=== PATIENT | male | born 2005 | race Caucasian/White ===

== ENCOUNTER 2023-08-08 11:55 | Emergency (ER) | payer MEDICAID, SELFPAY ==
[2023-08-08 11:56] VITALS: BP 140/90; PULSE 74; RESP 14; TEMP 36.8; O2SAT 100; BMI 34.0
[2023-08-08 15:13] LABS: AST(SGOT) 28 U/L (15-37); Alanine Aminotransfer ALT/SGPT 26 U/L (16-61); Albumin, Serum 4.4 g/dL (3.2-5.0); Alkaline Phosphatase 120 U/L (45-117); Anion Gap 6 (5-15); BUN 10 mg/dL (7-18); BUN/Creat Ratio 11.3 RATIO (10-20); Calcium,Total 9.6 mg/dL (8.5-10.1); Chloride 109 mmol/L (98-107); Creatinine, Serum 0.88 mg/dL (0.70-1.30); EST Glomerular Filtration Rate 117 mL/min (>60); Est Glom Filt Rate - Afr Amer 141 mL/min (>60); Globulin 4.2 g/dL (2.2-4.2); Glucose 85 mg/dL (74-106); Potassium 4.1 mmol/L (3.5-5.1); Protein, Total 8.6 g/dL (6.4-8.2); Sodium Level 138 mmol/L (136-145)
[2023-08-08 15:32] LABS: Absolute Lymphocyte Count 1.64 X10^3/uL (0.83-4.51); Basophil# 0.05 X10^3/uL; Basophil% 0.5 % (0-1); Eosinophil# 0.23 X10^3/uL; Eosinophils% 2.4 % (0-5); Hematocrit 48.5 % (40-54); Hemoglobin 15.7 g/dL (13.0-16.5); Lymphocyte # 1.64 X10^3/ul (0.83-4.51); Lymphocyte % 17.1 % (19-41); Mean Corp Hgb Conc 32.4 g/dL (32-36); Mean Corpuscular Hgb 27.5 pg (27.0-32.0); Mean Corpuscular Volume 85.1 fL (80-94); Mean Platelet Vol. 10.6 fl (6.2-12.0); Monocyte# 0.66 X10^3/uL; Monocyte% 6.9 % (0-10); NRBC Flagged by Analyzer 0 % (0-5); Neutrophil # 6.95 X10^3/uL (2.7-7.7); Neutrophil % 72.7 % (47-70); Platelet Count 338 K/mm3 (150-450); RBC Distribution Width SD 40.3 fl (35.1-43.9); White Blood Count 9.6 K/mm3 (4.4-11.0)
[2023-08-08 15:46] LABS: Squamous Epithelial Cells - UA 0 SEEN /hpf (0-5)
[2023-08-08 16:00] LABS: Lipase 26 U/L (13-75)
[2023-08-08 16:04] LABS: Color, Urine Yellow (Yellow); Glucose, Dipstick Normal (Normal); Ketone-Dipstick 15 mg/dl (Negative); Leukocyte Esterase-Dipstick Negative /ul (Negative); Nitrite-Dipstick Negative (Negative); Occult Blood-Urine Negative /ul (Negative); Protein-Dipstick 15 mg/dl (Negative); Urine Bilirubin Dipstick Negative (Negative); Urine Clarity Clear (Clear); Urine Urobilinogen 1 mg/dl (Normal)
--- NOTE | 2023-08-08 16:13 | ED.VIS.GI ---
HPI HPI - GI History of Present Illness Chief Complaint: Abd Pain Narrative Narrative: 17-year-old male with nausea, vomiting x 3 days. He states he is not able to hold down any food or fluid. He states has been something going around the house. He thought that he would get better but his symptoms of gotten worse. He is only able to hold onto small amount of fluids today. He states his abdomen does not hurt anymore but he does have nausea. No fevers, chills, body aches. No diarrhea. Patient denies significant medical problems. PFSH PFSH Medical History Asthma Home Medications albuterol sulfate 90 mcg/actuation aerosol inhaler (Ventolin HFA) 1 - 2 puff inhalation Q4H PRN PRN Wheezing ##1 10/17/14 [Rx Last Taken Unknown] ibuprofen 400 mg tablet 400 mg PO Q8H ##20 11/08/14 [Rx Last Taken Unknown] ondansetron 4 mg disintegrating tablet 4 mg PO Q8H PRN PRN Nausea #14 tabs 08/08/23 [Rx Last Taken Unknown] Allergy/AdvReac Type Severity Reaction Status Date / Time Food Allergies: Uncoded Allergy NEEDS Verified 08/08/23 11:56 FOLLOW-UP Surgical History no surgical history Social History Smoking Status: Never smoker ROS ROS ED Constitutional Constitutional ED: Denies chills, fever(s) or sweats Eyes Eyes: Denies blurry vision or change in vision ENT ENT ED: Denies ear pain or sore throat Cardiovascular Cardiovascular: Denies chest pain, palpitations or racing heartbeat Respiratory/Chest Respiratory/Chest: Denies cough, dyspnea or sputum Gastrointestinal Gastrointestinal: Reports abdominal pain, nausea and vomiting; Denies constipation Genitourinary Genitourinary ED: Denies dysuria, hematuria or urinary frequency Musculoskeletal Musculoskeletal: Denies arthralgias, myalgias or neck pain Integumentary Denies abscess, Abrasions or rash Neurologic Neurologic: Denies headache(s), paresthesias or weakness Psychiatric Psychiatric: Denies anxiety, depression, suicidal ideation or suicidal thoughts Endocrine Endocrinology: Denies polydipsia or polyuria EXAM Physical Exam Const Vital Signs: 08/08/23 11:56 Temperature 98.2 F Temperature Source Temporal Pulse Rate 74 Respiratory Rate 14 Blood Pressure 140/90 H Blood Pressure Mean 106 Pulse Ox 100 Oxygen Delivery Method Room Air Positive well nourished General Appearance ED: NAD; Negative for pallor HEENT Reports moist mucous membranes normocephalic Eyes PERRL and EOMs intact bilaterally Neck no lymphadenopathy Resp normal respiratory effort and clear to auscultation bilaterally Cardio regular rate and regular rhythm GI non-tender and non-distended Neuro CN's II-XII intact bilaterally and moves all extremities Sensorium / Orientation: alert Psych mental status grossly normal and thought process normal Skin no wounds General Skin Exam: Negative for jaundice or pallor MDM MDM MDM Narrative Medical decision making narrative: Patient presented with nausea, vomiting, abdominal pain which is resolved. He states he has not been able to hold down food or fluids. Differential includes COVID, influenza, dehydration, electrolyte abnormalities. Patient medicated with Zofran and CBC was obtained to assess white blood cell count, platelets, differential. CMP to assess liver function, renal function, electrolytes. Lipase assess for pancreatitis. Will reevaluate and p.o. challenge if feeling better. Patient reevaluated states he still has a mild headache. Was given Tylenol p.o. and tolerated this. Patient was counseled to drink small amounts of fluid frequently drink plenty of water. He is also to advance his diet as tolerated to maintain a bland diet. Patient was given a prescription for Zofran. He was given a work note for today and tomorrow. Return precautions were discussed. Impression: 1. Nausea/vomiting Lab Data Attestation: I reviewed the patient's lab results. Labs: Laboratory Results - last 24 hr 08/08/23 08/08/23 08/08/23 14:25 14:25 15:10 WBC Cancelled 9.6 Corrected WBC Cancelled RBC Cancelled 5.70 Hgb Cancelled 15.7 Hct Cancelled 48.5 MCV Cancelled 85.1 MCH Cancelled 27.5 MCHC Cancelled 32.4 RDW Std Deviation Cancelled 40.3 RDW Coeff of Jose Angel Cancelled 13.0 Plt Count Cancelled 338 MPV Cancelled 10.6 Immature Gran % (Auto) Cancelled 0.400 Neut % (Auto) Cancelled 72.7 H Lymph % (Auto) Cancelled 17.1 L Howell % (Auto) Cancelled 6.9 Eos % (Auto) Cancelled 2.4 Baso % (Auto) Cancelled 0.5 Absolute Neuts (auto) Cancelled 7.0 Absolute Lymphs (auto) Cancelled 1.64 Total Counted Cancelled Neutrophils % (Manual) Cancelled Band Neutrophils % Cancelled Lymphocytes % (Manual) Cancelled Monocytes % (Manual) Cancelled Eosinophils % (Manual) Cancelled Basophils % (Manual) Cancelled Metamyelocytes % Cancelled Myelocytes % Cancelled Promyelocytes % Cancelled Blast Cells % Cancelled Plasma Cell % (Manual) Cancelled Other Cells % Cancelled Nucleated RBC % Cancelled 0 Nucleated RBCs/100 WBC Cancelled Differential Comment Cancelled Diff Path Review Cancelled Hypersegmented Neuts Cancelled Atypical Lymphocytes Cancelled Reactive Lymphocytes Cancelled Smudge Cells Cancelled Toxic Granulation Cancelled Toxic Vacuolation Cancelled Dohle Bodies Cancelled Alfredo Rods Cancelled Platelet Estimate Cancelled Plt Morphology Comment Cancelled RBC Morphology Cancelled Cancelled Polychromasia Cancelled Hypochromasia Cancelled Poikilocytosis Cancelled Basophilic Stippling Cancelled Anisocytosis Cancelled Microcytosis Cancelled Macrocytosis Cancelled Spherocytes Cancelled Sickle Cells Cancelled Target Cells Cancelled Tear Drop Cells Cancelled Ovalocytes Cancelled Stomatocytes Cancelled [place] Bodies Cancelled Maryann Cells Cancelled Bite Cells Cancelled Crenated Cell Cancelled Acanthocytes (Spur) Cancelled Rouleaux Cancelled Schistocytes Cancelled Sodium 138 Potassium 4.1 Chloride 109 H Carbon Dioxide 23.0 Anion Gap 6 BUN 10 Creatinine 0.88 Estim Creat Clear Calc 143.80 Est GFR (MDRD) Af Amer 141 Est GFR (MDRD) Non-Af 117 BUN/Creatinine Ratio 11.3 Glucose 85 Calcium 9.6 Total Bilirubin 0.50 AST 28 ALT 26 Alkaline Phosphatase 120 H Total Protein 8.6 H Albumin 4.4 Globulin 4.2 Albumin/Globulin Ratio 1.0 Lipase 26 Urine Color Yellow Urine Clarity Clear Urine pH 6.0 Ur Specific [place] 1.020 Urine Protein 15 H Urine Glucose (UA) Normal Urine Ketones 15 H Urine Occult Blood Negative Urine Nitrite Negative Urine Bilirubin Negative Urine Urobilinogen 1 H Ur Leukocyte Esterase Negative Urine RBC 0-5 SEEN Urine WBC 0-5 SEEN Ur Squamous Epith Cells 0 SEEN Urine Bacteria RARE Urine Mucus 3+ Discharge Plan Triage Chief Complaint: Abd Pain ED Provider: Kirk,Mark Dx/Rx/DC Orders Instructions: ED Gastroenteritis, Viral (Adult) Prescriptions: New ondansetron 4 mg tablet,disintegrating 4 mg PO Q8H PRN PRN (Reason: Nausea) Qty: 14 0RF No Action albuterol sulfate [Ventolin HFA] 1 INHALER inhaler 1 - 2 puff inhalation Q4H PRN PRN (Reason: Wheezing) Qty: 1 0RF ibuprofen 400 MG tablet 400 mg PO Q8H Qty: 20 0RF Stand Alone Forms: ED Work / School Excuse, Work / School Excuse Primary Care Provider: Rickie Andrew Referrals: Rickie Andrew MD [Primary Care Provider] - Disposition Disposition: Home, Self Care
[2023-08-08] MEDS: Ondansetron 4 MG/2 ML Vial IV (16:17)
[2023-08-08 16:30] LABS: Bacteria RARE /hpf (None Seen); Mucous, Urine 3+ /hpf (<or=2+); Red Blood Cells-Urine 0-5 SEEN /hpf (0-5); White Blood Cells 0-5 SEEN /hpf (0-5)
[2023-08-08] MEDS: Acetaminophen 500 MG Tablet 1000 MG PO (16:48)
== END 2023-08-08 17:03 | disposition home or self-care (01) ==
PROVIDERS: Emergency Provider Student in an Organized Health Care Education/Training Program; PCP Family Medicine; Visit Provider Student in an Organized Health Care Education/Training Program
DX: R11.2 Nausea with vomiting, unspecified (principal); R10.9 Unspecified abdominal pain; J45.909 Unspecified asthma, uncomplicated; R51.9 Headache, unspecified
CPT/HCPCS: 80053; 81001; 83690; 85025; 96374; 99283; A4216; J2405

== ENCOUNTER 2025-03-08 08:01 | Emergency (ER) | payer BC, SELFPAY ==
[2025-03-08 08:03] VITALS: BP 127/79; PULSE 55; RESP 14; TEMP 36.4; O2SAT 98; BMI 30.9
[2025-03-08] MEDS: 0.9% Normal Saline (1000mL) 1,000 ML 999 ML IV (08:52)
[2025-03-08 09:30] LABS: Mucous, Urine 0 SEEN /hpf (<or=2+); Red Blood Cells-Urine 0 SEEN /hpf (0-5); Squamous Epithelial Cells - UA 0 SEEN /hpf (0-5)
[2025-03-08 09:34] LABS: Hematocrit 41.7 % (40-54); Hemoglobin 13.7 g/dL (13.0-16.5); Immature Granulocytes Count 0.030 X10^3/uL (0.0-0.0); Mean Corp Hgb Conc 32.9 g/dL (32-36); Mean Corpuscular Volume 87.2 fL (80-94); Mean Platelet Vol. 11.0 fl (6.2-12.0); NRBC Flagged by Analyzer 0 % (0-5); Platelet Count 235 K/mm3 (150-450); RBC Distribution Width CV 12.6 % (11.6-14.6); RBC Distribution Width SD 40.0 fl (35.1-43.9); Red Blood Count 4.78 M/mm3 (4.6-6.2); White Blood Count 10.8 K/mm3 (4.4-11.0)
[2025-03-08 09:38] LABS: Color, Urine Yellow (Yellow); Glucose, Dipstick Normal (Normal); Ketone-Dipstick Negative (Negative); Leukocyte Esterase-Dipstick Negative /ul (Negative); Nitrite-Dipstick Negative (Negative); Occult Blood-Urine Negative /ul (Negative); Protein-Dipstick Negative (Negative); Specific Gravity, Urine 1.010 (1.002-1.030); Urine Bilirubin Dipstick Negative (Negative)
[2025-03-08 10:02] VITALS: BP 120/81; PULSE 58; RESP 16; TEMP 36.8; O2SAT 100
[2025-03-08 10:21] LABS: AST(SGOT) 28 U/L (<=37); Alanine Aminotransfer ALT/SGPT 12 U/L (<=46); Albumin, Serum 4.2 g/dL (3.5-5.0); Alkaline Phosphatase 89 U/L (40-129); Anion Gap 10 (5-15); BUN 6 mg/dL (4-19); BUN/Creat Ratio 9.4 RATIO (10-20); Calcium,Total 8.8 mg/dL (7.6-11.0); Carbon Dioxide 20.4 mmol/L (21.0-32.0); Chloride 111 mmol/L (98-108); Estimated Creatinine Clearance 210.90 ml/min (50-250); Globulin 2.3 g/dL (2.2-4.2); Glucose 107 mg/dL (70-99); Lipase 31 U/L (13-75); Potassium 4.0 mmol/L (3.3-5.1)
[2025-03-08 12:05] VITALS: BP 146/97; PULSE 87; RESP 16; TEMP 37.1; O2SAT 100
== END 2025-03-08 12:05 | disposition home or self-care (01) ==
PROVIDERS: Emergency Provider Emergency Medicine; PCP Nurse Practitioner Family; Visit Provider Emergency Medicine
DX: K92.0 Hematemesis (principal); R11.2 Nausea with vomiting, unspecified; J45.909 Unspecified asthma, uncomplicated
CPT/HCPCS: 36415; 80053; 81001; 83690; 85025; 96361; 96374; 99283; A4216